=== PATIENT | female | born 2000 | race Caucasian/White ===

== ENCOUNTER → 2019-10-12 10:38 | Outpatient (CLI) | payer SELFPAY ==
--- NOTE | 2019-10-12 10:44 | RAD_ITS ---
STUDY: X-RAY - LEFT FOOT CLINICAL: Female, 19 years old. foot was stuck in farm implement 3 days ago TECHNIQUE: 3 view(s) of the foot. COMPARISON: None. FINDINGS: Normal talus, calcaneus, and tarsal bones. Normal visualized subtalar, talonavicular, calcaneocuboid, tarsal and tarsometatarsal articulations. Normal metatarsi. Normal metatarsophalangeal joint of the great toe. Normal tibial and fibular sesamoid bones. Normal interphalangeal joint of the great toe. Normal phalanges of the great toe. Normal second through fifth metatarsophalangeal joints. Normal interphalangeal joints and phalanges of the lesser toes. The soft tissue structures are unremarkable. RAD/Foot min 3 Views IMPRESSION: Normal x-ray examination of the foot. Electronically Signed: Tyree Ervin MD at 10:58 EDT Tel , Service support ,
== END ==
PROVIDERS: Referring Provider Physician Assistant; Visit Provider Physician Assistant
DX: S99.922A Unspecified injury of left foot, initial encounter (principal)
CPT/HCPCS: 73630

== ENCOUNTER → 2020-02-26 10:18 | Outpatient (CLI) | payer SELFPAY ==
[2019-10-12 11:06] VITALS: BMI 21.9
[2020-02-26 14:41] LABS: Absolute Lymphocyte Count 2.39 X10^3/uL (0.83-4.51); Absolute Neutrophil Count 3.7 X10^3/uL (2.0-7.7); Basophil# 0.06 X10^3/uL; Basophil% 0.9 % (0-1); Color, Urine Yellow (Yellow); Eosinophil# 0.12 X10^3/uL; Eosinophils% 1.7 % (0-5); Glucose, Dipstick Normal (Normal); Hemoglobin 12.6 g/dL (12.0-15.0); Ketone-Dipstick Negative (Negative); Leukocyte Esterase-Dipstick Negative /ul (Negative); Lymphocyte # 2.39 X10^3/ul (4.0); Lymphocyte % 34.8 % (19-41); Mean Corp Hgb Conc 33.2 g/dL (32-36); Mean Corpuscular Hgb 29.4 pg (27.0-32.0); Mean Corpuscular Volume 88.8 fL (81-99); Mean Platelet Vol. 9.8 fl (6.2-12.0); Monocyte% 8.7 % (0-10); NRBC Flagged by Analyzer 0 % (0-5); Neutrophil # 3.67 X10^3/uL (2.7-7.7); Neutrophil % 53.6 % (47-70); Nitrite-Dipstick Negative (Negative); Occult Blood-Urine Negative /ul (Negative); Platelet Count 307 K/mm3 (150-450); Protein-Dipstick Negative (Negative); RBC Distribution Width CV 12.1 % (11.6-14.6); RBC Distribution Width SD 38.5 fl (35.1-43.9); Red Blood Count 4.28 M/mm3 (4.2-5.4); Urine Bilirubin Dipstick Negative (Negative); Urine Clarity Clear (Clear); Urine Urobilinogen Normal (Normal); White Blood Count 6.9 K/mm3 (4.4-11.0)
[2020-02-26 15:43] LABS: HIV - WCH Non-Reactive (Nonreactive); Hepatitis B Surface Antigen Non-Reactive (Nonreactive); Hepatitis C Antibody Non-Reactive (Nonreactive); Rubella IgG Non-Reactive (Nonreactive)
[2020-03-01 03:07] LABS: Chlamydia By Nucleic Acid AMP Negative (Negative)
[2020-03-01 06:30] LABS: Gonococcus By Nucleic Acid AMP Negative (Negative)
[2020-03-02 15:14] LABS: HPV Reflexed? NOT INDICATED
[2020-03-03 01:20] LABS: Prenatal RPR NONREACTIVE (NONREACTIVE)
== END ==
PROVIDERS: Visit Provider Obstetrics & Gynecology
DX: Z34.81 Encounter for supervision of other normal pregnancy, first trimester (principal); Z12.4 Encounter for screening for malignant neoplasm of cervix; Z11.3 Encounter for screening for infections with a predominantly sexual mode of transmission
CPT/HCPCS: 36415; 81002; 85025; 86703; 86762; 86803; 87086; 87340; 87491; 87591; 88175; G0145

== ENCOUNTER → 2020-06-27 10:35 | Outpatient (CLI) | payer SELFPAY ==
[2019-10-12 11:06] VITALS: BMI 21.9
[2020-06-27 11:33] LABS: Hematocrit 33.8 % (37-47); Hemoglobin 11.6 g/dL (12.0-15.0); Mean Corp Hgb Conc 34.3 g/dL (32-36); Mean Corpuscular Hgb 31.5 pg (27.0-32.0); Mean Corpuscular Volume 91.8 fL (81-99); Mean Platelet Vol. 8.8 fl (6.2-12.0); Platelet Count 311 K/mm3 (150-450); RBC Distribution Width SD 43.7 fl (35.1-43.9); Red Blood Count 3.68 M/mm3 (4.2-5.4); White Blood Count 11.1 K/mm3 (4.4-11.0)
[2020-06-27 11:46] LABS: Glucose Challenge Gest 1H 50g 75 mg/dL (70-140)
== END ==
PROVIDERS: Visit Provider Obstetrics & Gynecology
DX: Z34.82 Encounter for supervision of other normal pregnancy, second trimester (principal)
CPT/HCPCS: 36415; 82950; 85027

== ENCOUNTER → 2020-07-19 10:39 | Outpatient (CLI) | payer SELFPAY ==
[2019-10-12 11:06] VITALS: BMI 21.9
== END ==
PROVIDERS: Visit Provider Obstetrics & Gynecology
DX: R76.8 Other specified abnormal immunological findings in serum (principal)
CPT/HCPCS: 36415; 86850

== ENCOUNTER → 2020-09-08 11:49 | Outpatient (CLI) | payer OTHER, SELFPAY ==
[2019-10-12 11:06] VITALS: BMI 21.9
== END ==
PROVIDERS: Visit Provider Obstetrics & Gynecology
DX: Z36.85 Encounter for antenatal screening for Streptococcus B (principal)
CPT/HCPCS: 87081

== ENCOUNTER 2020-09-26 18:35 | Inpatient (IN) | payer SELFPAY, OTHER ==
[2019-10-12 11:06] VITALS: BMI 21.9
[2020-09-26 19:25] VITALS: BP 115/73; PULSE 73; TEMP 36.9; O2SAT 99
[2020-09-26 19:35] VITALS: BMI 20.6
[2020-09-26] MEDS: 0.9% Saline Lock 10 ML Syringe IV (19:45)
[2020-09-26 19:59] LABS: Absolute Lymphocyte Count 2.48 X10^3/uL (0.83-4.51); Absolute Neutrophil Count 6.8 X10^3/uL (2.0-7.7); Basophil# 0.04 X10^3/uL; Basophil% 0.4 % (0-1); Hematocrit 34.5 % (37-47); Hemoglobin 11.9 g/dL (12.0-15.0); Lymphocyte # 2.48 X10^3/ul (0.83-4.51); Lymphocyte % 24.4 % (19-41); Mean Corp Hgb Conc 34.5 g/dL (32-36); Mean Corpuscular Hgb 31.5 pg (27.0-32.0); Mean Corpuscular Volume 91.3 fL (81-99); Mean Platelet Vol. 9.6 fl (6.2-12.0); Monocyte# 0.69 X10^3/uL; Monocyte% 6.8 % (0-10); NRBC Flagged by Analyzer 0 % (0-5); Neutrophil # 6.78 X10^3/uL (2.7-7.7); Neutrophil % 66.7 % (47-70); Platelet Count 202 K/mm3 (150-450); RBC Distribution Width CV 12.4 % (11.6-14.6); RBC Distribution Width SD 40.7 fl (35.1-43.9); Red Blood Count 3.78 M/mm3 (4.2-5.4); White Blood Count 10.2 K/mm3 (4.4-11.0)
[2020-09-26] MEDS: miSOPROStol 25 MCG TABLET VAGINAL (20:58)
[2020-09-26 21:00] VITALS: BP 111/72; PULSE 65; O2SAT 100
[2020-09-27] VITALS (25 sets, daily range): BP systolic 103–134; BP diastolic 61–84; PULSE 54–82; RESP 16; TEMP 36.4–37.6; O2SAT 82–100
[2020-09-27] MEDS: Lactated Ringers 500 ML 999 ML IV ×2 (00:15→02:09)
[2020-09-27] MEDS: Lactated Ringers 1,000 ML 50 ML IV (00:46)
[2020-09-27] MEDS: Acetaminophen 500 MG Tablet PO (04:11)
--- NOTE | 2020-09-27 05:19 | PLAC_PTH ---
PATIENT: DONNA ELY LOC: [facility] U#:[id number] AGE/SX: 20/F ROOM: WP010 RE09/26/[address]: Dr. Conrado Ely MD : 2000 BED: 1 DIS: 09/28/2020 SPEC #: [id number] RECD: 09/27/20 09:13 STATUS: CORRINE REYolanda #: [id number] BRANDON: 09/27/20 05:[address]: Conrado Ely DEPT: SURGICAL PATHOLOGY RECD BY: Colleen Ashton ENTERED: 09/27/20 09:50 SP TYPE: PLACENTA OTHR DR: No Primary Care Phys Tissues: Placenta, NOS Procedures: Surgery Specimen Level V HEADER OPERATION: Vaginal delivery PRE-OP DIAGNOSIS: Labor TISSUE SUBMITTED: Placenta MICROSCOPIC DIAGNOSIS Webb placenta (361 gm): Umbilical cord ? trivascular with no inflammation. Placental membranes ? no pathologic change. Placental disc ? Fahad-Darrian change and mild intravillous congestion. AM:jonatan 09/29/2020 MICROSCOPIC DESCRIPTION Slides are reviewed. GROSS DESCRIPTION SPECIMEN: PLACENTA / CLINICAL INFORMATION: A. Weight: 2.48 kg B. Gestational Age: 38 weeks C. Sex: Male PLACENTAL WEIGHT (POST FIXATION): 361 gm PLACENTAL DIMENSIONS: 15 x 14 x 3 cm PLACENTAL SHAPE: Usual ovoid PLACENTAL WEIGHT FOR GESTATIONAL AGE: Within 10-99th percentile MEMBRANES - Present A. Insertion: Marginal B. Site of rupture from edge: At edge of placental disc C. Color of membrane: Lopez-marinelli D. Abnormalities: None UMBILICAL CORD - Present A. Color: Lopez-marinelli B. Insertion: Central C. Length: 30 cm D. Diameter: 1.2 cm E. Number of vessels: Three F. Abnormalities: None PLACENTAL DISC - Present A. Color of surface: Lopez-marinelli B. surface abnormalities: None C. Maternal cotyledons: Intact with minimal tears D. Attached retro placental clot: No clot E. Cut surface: Dark red and spongy F. Lesions: None G. Separate clot: Absent SECTIONS SUBMITTED: 1. Umbilical cord ( end notched) 2. Umbilical cord, placental end 3. Membrane roll 4. Placental disc, and maternal surfaces 5. Placental disc, and maternal surfaces 6. Placental disc, and maternal surfaces AM:jonatan 09/28/20 TC:5 CPT: 38209
[2020-09-27] MEDS: Oxytocin 30 units/NS 500 ml 30 UNITS/500 ML IV.SOLN 334 UNITS IV (05:24)
--- NOTE | 2020-09-27 05:51 | PCM.HP.OB ---
HPI - General General Date of Admission: 09/26/20 HPI Narrative 20-year-old G1, P0 admitted at 38/4 weeks, TOSHIA 10/06/2020 by LMP, for induction of labor for growth restriction. Denies leaking of fluid, vaginal bleeding, contractions. Reports movement. Denies headache, vision change, chest pain, shortness of breath, nausea or vomiting, diarrhea or constipation, fevers or chills. complicated by growth restriction: EFW 2668g 10% AC 2.5% on last growth ultrasound. Maternal Data Information Final TOSHIA: 10/06/20 Final TOSHIA Source: LMP PFSH PFSH Home Medications DHA 1 dose PO/SL DAILY 09/26/20 [History Last Taken 09/25/20] Allergy/AdvReac Type Severity Reaction Status Date / Time No Known Allergies Allergy Verified 09/26/20 19:33 Social History Smoking Status: Never smoker alcohol intake: never History 1 Elective abortions Hx Para 0 Spontaneous abortions Hx # Term Pregnancies Ectopic pregnancies Hx # Pregnancies Multiple births # of living children NST FHR Rate Baby A Baseline: 145 Variability:: Moderate Accelerations:: 15 x 15 Decelerations:: None NST Reactive:: Yes FHR Category:: Category I ROS Constitutional Constitutional: Reports systems reviewed and no addt'l complaints, except as documented Eyes Eyes: Reports systems reviewed and no addt'l complaints, except as documented ENT HEENT: Reports systems reviewed and no addt'l complaints, except as documented Cardiovascular Cardiovascular: Reports systems reviewed and no addt'l complaints, except as documented Respiratory/Chest Respiratory/Chest: Reports systems reviewed and no addt'l complaints, except as documented Gastrointestinal Gastrointestinal: Reports systems reviewed and no addt'l complaints, except as documented Genitourinary Genitourinary: Reports systems reviewed and no addt'l complaints, except as documented Musculoskeletal Musculoskeletal: Reports systems reviewed and no addt'l complaints, except as documented Integumentary Integumentary: Reports systems reviewed and no addt'l complaints, except as documented Neurologic Neurologic: Reports systems reviewed and no addt'l complaints, except as documented Psychiatric Psychiatric: Reports systems reviewed and no addt'l complaints, except as documented Endocrine Endocrinology: Reports systems reviewed and no addt'l complaints, except as documented Hematologic/Lymphatic Hematologic/Lymphatic: Reports systems reviewed and no addt'l complaints, except as documented Allergic/Immunologic Allergic/Immunologic: Reports systems reviewed and no addt'l complaints, except as documented Vital Signs Vital Signs Vital Signs: 09/26/20 19:25 09/26/20 21:00 09/27/20 00:17 Temperature 98.4 F 98.2 F Temperature Source Temporal Temporal Pulse Rate 73 65 55 L Blood Pressure 115/73 111/72 132/82 H BP Systolic 115 111 132 BP Diastolic 73 72 82 Pulse Ox 99 100 100 09/27/20 02:11 09/27/20 02:12 09/27/20 04:50 Temperature 98.9 F Temperature Source Temporal Pulse Rate 58 L 54 L 82 Blood Pressure 115/74 123/68 H BP Systolic 115 123 BP Diastolic 74 68 Pulse Ox 99 99 09/27/20 05:36 09/27/20 05:40 09/27/20 05:42 Temperature Temperature Source Pulse Rate 82 72 Blood Pressure 130/70 H BP Systolic 130 BP Diastolic 70 Pulse Ox 100 82 100 09/27/20 05:47 Temperature Temperature Source Pulse Rate 65 Blood Pressure BP Systolic BP Diastolic Pulse Ox 100 Weight Weight: 51.256 kg Body Mass Index (BMI) 20.6 Physical Exam Const alert, oriented x3 and no apparent distress HEENT normocephalic Head and Scalp: atraumatic Neck full ROM Resp normal respiratory effort and clear to auscultation bilaterally Cardio regular rate and regular rhythm GI normal to inspection, nondistended, normoactive bowel sounds Inspection: gravid Extremity normal to inspection and no pedal edema Neuro moves all extremities, no focal motor deficits, no sensory deficits noted and gait normal Psych mental status grossly normal and affect normal Labs Labs Labs: Blood Type B NEGATIVE Antibody Screen NEGATIVE Hct 34.5 % (37-47) L Hgb 11.9 g/dL (12.0-15.0) L Rubella IgG Antibody Non-Reactive (Nonreactive) Hep Bs Antigen Non-Reactive (Nonreactive) Neisseria gonorrhoeae DNA (JOHN) Negative (Negative) HIV 1&2 Antibody Non-Reactive (Nonreactive) Glucose 1 Hr 50 gm 75 mg/dL (70-140) Assessment & Plan (1) growth restriction: PLAN: 20-year-old G1, P0 admitted at 38/4 weeks, TOSHIA 10/06/2020 by LMP, for induction of labor for growth restriction. Cytotec induction. Routine orders. Uncomplicated otherwise.
--- NOTE | 2020-09-27 05:57 | EX.PCM.OBRPT ---
Maternal Data Information Final TOSHIA: 10/06/20 Final TOSHIA Source: LMP Vaginal Delivery Operative Information Date of Procedure: 09/27/20 Pre-Operative Diagnosis: growth restriction Post-Operative Diagnosis: growth restriction Surgery / Procedure Performed: Spontaneous Vaginal Delivery Type of Anesthesia: None Estimated Blood Loss: 250cc Findings Description of Procedure: Spontaneous vaginal delivery viable male. No nuchal cord. Baby to maternal chest. Cord clamped and cut. Periclitoral laceration repaired in the usual fashion after lidocaine, hemostatic. Spontaneous delivery of placenta. Apgars 9/9.
--- NOTE | 2020-09-27 06:00 | PCM.DC ---
Discharge Instructions Diet Discharge Diet: No restrictions Activity Discharge Activity: Return to Normal Activity and May Shower May resume sexual activity in: 4-6 weeks Weight Bearing Status: Weight bearing as tolerated Dressing / Incision Call your doctor if your incision/area has: Continuous Slow Oozing Call your doctor if you observe: Fever of 101 or Higher, Inability to urinate, Using more than 1 pad per hour, Shortness of breath, Dizziness, Swelling in the ankles and Chest pain Cleanse incision/area with: Soap & Water Follow Up Care Please Follow Up With: Conrado Lemus When: 2 week telehealth, 6 week Test Results: Test results from this visit will be discussed in further detail at your follow-up appointment, if applicable. Discharge Plan Admission Admit Date/Time: 09/26/20 18:35 Primary Reason for Your Visit: Labor Attending Provider: Conrado Lemus Primary Care Provider: Care Physician,No Primary Discharge Orders/Prescriptions Prescriptions: No Action DHA 1 dose PO/SL DAILY RF: 0 Referrals / Follow Up: Care Physician,No Primary [Primary Care Provider] - Disposition Disposition (needs filled in before D/C Order can be placed): Home, self care
[2020-09-27] MEDS: Ibuprofen 600 MG Tablet PO ×2 (06:37→22:03)
[2020-09-27] MEDS: 0.9% Saline Lock 10 ML Syringe IV (08:20)
[2020-09-27 09:11] LABS: Pathology Specimen OB SEE PATHOLOGY REPORT
[2020-09-28 00:09] VITALS: BP 101/65; PULSE 61; RESP 16; TEMP 36.3
[2020-09-28 04:25] VITALS: BP 97/64; PULSE 54; RESP 14; TEMP 36.6
--- NOTE | 2020-09-28 06:35 | PCM.PN.OB ---
Subjective Subjective No complaints. Has mild cramping, alleviated with NSAIDS. Denies heavy lochia. She is with no concerns. Objective Data Objective Data Vital Signs: Vital Signs Temp Pulse Resp BP Pulse Ox 98 F 54 L 14 97/64 99 09/28/20 04:25 09/28/20 04:25 09/28/20 04:25 09/28/20 04:25 09/27/20 06:17 Oxygen Delivery Method Room Air Weight: 51.256 kg Body Mass Index (BMI) 20.6 Intake & Output: Intake and Output for Last 24 Hours 09/26/20 09/27/20 09/28/20 23:59 23:59 23:59 Intake Total 1795.84 / 1795.84 Output Total 300 / 300 Balance 1495.84 / 1495.84 Lab / Micro Data Result Diagrams: 09/26/20 19:45 Labs: Laboratory Results - last 24 hr 09/27/20 07:50 Screen NEGATIVE Baby's Blood Type AB POSITIVE Baby's MARCELO POSITIVE Micro: Microbiology 09/26/20 19:45 Mucosa - Nose SARS-CoV-2 Antigen (Rapid) - Final Physical Exam Const alert, oriented x3 and no apparent distress Resp normal respiratory effort and normal air movement Cardio regular rate, regular rhythm, S1 normal heart sound and S2 normal heart sound Narrative: lochia scant Uterus Palpation: uterus fundus firm and other OB fundus nontender Extremity no calf tenderness Neuro oriented x3 Assessment & Plan (1) (spontaneous vaginal delivery): PLAN: B negative - infant AB positive, pt for Rhogam HBsAg neg/HIV neg/RPR nr/Rubella immune Plan for d/c home later today
--- NOTE | 2020-09-28 06:44 | PCM.DC ---
Discharge Instructions Diet Discharge Diet: No restrictions Activity May resume sexual activity in: 4-6 weeks Weight Bearing Status: Weight bearing as tolerated Dressing / Incision Call your doctor if your incision/area has: Continuous Slow Oozing Call your doctor if you observe: Fever of 101 or Higher, Inability to urinate, Using more than 1 pad per hour, Shortness of breath, Dizziness, Swelling in the ankles and Chest pain Cleanse incision/area with: Soap & Water Follow Up Care Please Follow Up With: Conrado Lemus When: 3 weeks for telehealth 6 weeks visit Test Results: Test results from this visit will be discussed in further detail at your follow-up appointment, if applicable. Discharge Plan Admission Admit Date/Time: 09/26/20 18:35 Primary Reason for Your Visit: Attending Provider: Conrado Lemus Primary Care Provider: Care Physician,No Primary Instructions Patient Instructions: After a Vaginal Discharge Orders/Prescriptions Prescriptions: No Action DHA 1 dose PO/SL DAILY RF: 0 Referrals / Follow Up: Care Physician,No Primary [Primary Care Provider] - Disposition Disposition (needs filled in before D/C Order can be placed): Home, self care
--- NOTE | 2020-09-28 06:48 | PCM.DC.SUM ---
Providers Date of Admission: 09/26/20 Primary Care Physician: Larissa Primary Care Phys Reason For Visit: INDUCTION Diagnosis Discharge Diagnosis (1) (spontaneous vaginal delivery): Status: Acute Code(s): O80 - Encounter for full-term uncomplicated delivery Medications at Discharge Home Medications DHA 1 dose PO/SL DAILY 09/26/20 ibuprofen 600 mg PO Q8H PRN PRN #30 tab 09/28/20 Hospital Course Summary of Care Provided Hospital Course: 20yo G1 admitted at 38 4/7 weeks gestation for scheduled induction of labor for growth restriction. She had an uncomplicated . Her course was unremarkable and she was discharged to home on day #1. Weight / BMI Weight Weight: 51.256 kg Body Mass Index (BMI) 20.6 ABG / Lab / Microbiology Data Result Diagrams: 09/26/20 19:45 Laboratory: Laboratory Results - last 24 hr 09/27/20 07:50 Screen NEGATIVE Baby's Blood Type AB POSITIVE Baby's MARCELO POSITIVE Microbiology: Microbiology 09/26/20 19:45 Mucosa - Nose SARS-CoV-2 Antigen (Rapid) - Final D/C Instructions Discharge Diet: No restrictions May resume sexual activity in: 4-6 weeks Weight Bearing Status: Weight bearing as tolerated Call your doctor if your incision/area has: Continuous Slow Oozing Call your doctor if you observe: Fever of 101 or Higher, Inability to urinate, Using more than 1 pad per hour, Shortness of breath, Dizziness, Swelling in the ankles and Chest pain Cleanse incision/area with: Soap & Water Please Follow Up With: Conrado Lemus When: 3 weeks for telehealth 6 weeks visit Meaningful Use Info Meaningful Use Diagnoses (Choose all that apply): None applicable Discharge Plan Admission Admit Date/Time: 09/26/20 18:35 Primary Reason for Your Visit: Attending Provider: Conrado Lemus Primary Care Provider: Care Physician,No Primary Instructions Patient Instructions: After a Vaginal Discharge Orders/Prescriptions Prescriptions: New ibuprofen 600 mg Tablet 600 mg PO Q8H PRN PRN (Reason: Pain Score 1-3) Qty: 30 RF: 0 Continued DHA 1 dose PO/SL DAILY RF: 0 Referrals / Follow Up: Care Physician,No Primary [Primary Care Provider] - Disposition Disposition (needs filled in before D/C Order can be placed): Home, self care
[2020-09-28 08:00] VITALS: BP 98/74; PULSE 62; RESP 18; TEMP 36.2
== END 2020-09-28 13:30 | disposition home or self-care (01) | DRG 768 ==
PROVIDERS: Student in an Organized Health Care Education/Training Program; Admitting Provider Obstetrics & Gynecology; Visit Provider Obstetrics & Gynecology
DX: O36.5930 Maternal care for other known or suspected poor fetal growth, third trimester, not applicable or unspecified (principal); Z37.0 Single live birth; O71.89 Other specified obstetric trauma; Z3A.38 38 weeks gestation of pregnancy
CPT/HCPCS: 59025; 59050; 85025; 85461; 86850; 86900; 86901; 87426; 88307; 90384; 99218; J7120; A4216; G0378; J2790

== ENCOUNTER → 2022-03-29 | Outpatient (CLI) | payer OTHER, SELFPAY ==
[2022-03-29 17:18] LABS: Absolute Lymphocyte Count 2.59 X10^3/uL (0.83-4.51); Absolute Neutrophil Count 6.2 X10^3/uL (2.0-7.7); Basophil# 0.05 X10^3/uL; Basophil% 0.5 % (0-1); Eosinophil# 0.16 X10^3/uL; Eosinophils% 1.7 % (0-5); Hematocrit 35.7 % (37-47); Hemoglobin 12.3 g/dL (12.0-15.0); Lymphocyte # 2.59 X10^3/ul (0.83-4.51); Lymphocyte % 27.2 % (19-41); Mean Corp Hgb Conc 34.5 g/dL (32-36); Mean Corpuscular Hgb 30.1 pg (27.0-32.0); Mean Corpuscular Volume 87.5 fL (81-99); Mean Platelet Vol. 8.9 fl (6.2-12.0); Monocyte# 0.52 X10^3/uL; Monocyte% 5.5 % (0-10); NRBC Flagged by Analyzer 0 % (0-5); Neutrophil # 6.17 X10^3/uL (2.7-7.7); Neutrophil % 64.8 % (47-70); Platelet Count 301 K/mm3 (150-450); RBC Distribution Width CV 12.7 % (11.6-14.6); RBC Distribution Width SD 40.1 fl (35.1-43.9); Red Blood Count 4.08 M/mm3 (4.2-5.4); White Blood Count 9.5 K/mm3 (4.4-11.0)
[2022-03-29 18:35] LABS: HIV - WCH Non-Reactive (Nonreactive); Hepatitis B Surface Antigen Non-Reactive (Nonreactive); Hepatitis C Antibody Non-Reactive (Nonreactive); Rubella IgG Non-Reactive (Nonreactive); Syphilis Antibodies Non-reactive
[2022-04-02 05:06] LABS: Chlamydia By Nucleic Acid AMP Negative (Negative); Gonococcus By Nucleic Acid AMP Negative (Negative)
[2022-04-03 11:21] LABS: V-Zoster IgG (Immunity) 763 index (Immune >165)
== END | disposition home or self-care (01) ==
LOC: WOBLAB 16:48
PROVIDERS: Visit Provider Obstetrics & Gynecology
DX: Z34.81 Encounter for supervision of other normal pregnancy, first trimester (principal)
CPT/HCPCS: 36415; 85025; 86703; 86762; 86780; 86787; 86803; 87086; 87088; 87340; 87491; 87591

== ENCOUNTER → 2022-06-22 | Outpatient (CLI) | payer OTHER, SELFPAY ==
[2022-06-22 10:58] LABS: Hematocrit 32.8 % (37-47); Hemoglobin 10.9 g/dL (12.0-15.0); Mean Corp Hgb Conc 33.2 g/dL (32-36); Mean Corpuscular Hgb 31.1 pg (27.0-32.0); Mean Corpuscular Volume 93.7 fL (81-99); Mean Platelet Vol. 8.9 fl (6.2-12.0); Platelet Count 255 K/mm3 (150-450); RBC Distribution Width CV 12.9 % (11.6-14.6); White Blood Count 8.9 K/mm3 (4.4-11.0)
[2022-06-22 11:02] LABS: Glucose Challenge Gest 1H 50g 84 mg/dL (70-140)
== END | disposition home or self-care (01) ==
LOC: WOBLAB 10:14
PROVIDERS: Visit Provider Obstetrics & Gynecology
DX: Z34.82 Encounter for supervision of other normal pregnancy, second trimester (principal)
CPT/HCPCS: 36415; 82950; 85027

== ENCOUNTER → 2022-07-20 | Outpatient (CLI) | payer OTHER, SELFPAY ==
[2022-07-20 11:32] LABS: Syphilis Antibodies Non-reactive
== END | disposition home or self-care (01) ==
PROVIDERS: Visit Provider Obstetrics & Gynecology
DX: Z34.83 Encounter for supervision of other normal pregnancy, third trimester (principal)
CPT/HCPCS: 36415; 86780

== ENCOUNTER → 2022-08-30 | Outpatient (CLI) | payer OTHER, SELFPAY ==
[2022-08-30 09:46] LABS: Hemoglobin 11.2 g/dL (12.0-15.0); Mean Corp Hgb Conc 32.9 g/dL (32-36); Mean Corpuscular Hgb 30.8 pg (27.0-32.0); Mean Corpuscular Volume 93.4 fL (81-99); Mean Platelet Vol. 8.5 fl (6.2-12.0); Platelet Count 252 K/mm3 (150-450); RBC Distribution Width CV 12.9 % (11.6-14.6); Red Blood Count 3.64 M/mm3 (4.2-5.4)
== END | disposition home or self-care (01) ==
LOC: WOBLAB 09:18
PROVIDERS: Visit Provider Obstetrics & Gynecology
DX: Z34.83 Encounter for supervision of other normal pregnancy, third trimester (principal); Z36.85 Encounter for antenatal screening for Streptococcus B
CPT/HCPCS: 36415; 85027; 87081

== ENCOUNTER 2022-09-17 07:00 | Inpatient (IN) | payer SELFPAY, OTHER ==
[2022-09-17] VITALS (15 sets, daily range): BP systolic 99–122; BP diastolic 60–80; PULSE 65–81; RESP 16; TEMP 36.2–36.8; O2SAT 79–99; BMI 20.9
[2022-09-17] MEDS: Lactated Ringers 1,000 ML 50 ML IV (07:35)
[2022-09-17] MEDS: Oxytocin 15 Units/NS 250ml 15 UNITS/250 ML IV.SOLN 2 UNITS IV (07:44)
[2022-09-17 07:58] LABS: Absolute Lymphocyte Count 2.12 X10^3/uL (0.83-4.51); Absolute Neutrophil Count 4.8 X10^3/uL (2.0-7.7); Basophil# 0.05 X10^3/uL; Basophil% 0.6 % (0-1); Eosinophil# 0.12 X10^3/uL; Eosinophils% 1.5 % (0-5); Hematocrit 33.7 % (37-47); Hemoglobin 11.5 g/dL (12.0-15.0); Lymphocyte # 2.12 X10^3/ul (0.83-4.51); Lymphocyte % 26.8 % (19-41); Mean Corp Hgb Conc 34.1 g/dL (32-36); Mean Corpuscular Hgb 31.3 pg (27.0-32.0); Mean Corpuscular Volume 91.8 fL (81-99); Monocyte# 0.78 X10^3/uL; Monocyte% 9.8 % (0-10); NRBC Flagged by Analyzer 0 % (0-5); Neutrophil # 4.78 X10^3/uL (2.7-7.7); Neutrophil % 60.4 % (47-70); Platelet Count 205 K/mm3 (150-450); RBC Distribution Width CV 13.2 % (11.6-14.6); RBC Distribution Width SD 43.8 fl (35.1-43.9); Red Blood Count 3.67 M/mm3 (4.2-5.4); White Blood Count 7.9 K/mm3 (4.4-11.0)
[2022-09-17 08:52] LABS: Syphilis Antibodies Non-reactive
--- NOTE | 2022-09-17 11:18 | PCM.HP.BLA ---
History and Physical Date of Admission: 09/17/22 Chief complaint: Induction of labor IUGR History present illness: 22-year-old at 37 weeks and 6 days with TOSHIA 10/02/2021 arrives for induction of labor with IUGR. Denies headache, vision change, chest pain, shortness of breath, nausea vomit, right upper quadrant pain. Patient states good movement. is complicated by IUGR Obstetric history: G1: 39-week male 5 pounds 7 ounces G2: Current Past medical history: None Medications: vitamin Allergies: No known drug allergies Past surgical history: None Family history: Denies history DVT or PE Social history: Denies smoking, alcohol use, drug use Review of systems: Besides above pertinent positives a full review of systems was performed and found to be negative Physical exam: Vitals: Blood pressure 111/64 pulse 73 General: Normal-appearing no acute distress HEENT: Normocephalic/atraumatic no cervical lymphadenopathy Cardiac/respiratory: No use of accessory muscles, nonlabored breathing Abdomen: Soft, nontender, gravid Pelvic exam: Cervical exam 3/60/-3. AROM clear fluid Extremities: No peripheral edema normal peripheral pulses Psych: Normal affect, demeanor nonpressured speech Labs: White blood cell count 7.9 hemoglobin 11.5 hematocrit 33.7% platelets 205. RPR nonreactive. Blood type B- antibody positive anti-D Assessment and plan: 22-year-old G2, P1 at 37 weeks and 6 days arrives for induction of labor with IUGR via Pitocin. GBS negative. Routine orders. 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 We will continue to titrate Pitocin, status post AROM
[2022-09-17] MEDS: Ondansetron 4 MG/2 ML Vial IV (13:34)
[2022-09-17] MEDS: Methylergonovine 0.2 MG/ML Ampul IM (14:00)
--- NOTE | 2022-09-17 14:05 | EX.PCM.OBRPT ---
Vaginal Delivery Findings Description of Procedure: Called by nursing that patient 8 cm and discussed early arrival to hospital. Arrived to hospital and patient's room patient precipitously delivered male infant, baby skin to skin. Cord clamped and cut. Placenta delivered via cord traction, fundal massage, and maternal pushing efforts, intact. IV Pitocin given per protocol. IM Methergine given prophylactically with short second stage of labor. No lacerations noted. EBL 300 cc. Apgars 8/9
[2022-09-17] MEDS: Ibuprofen 600 MG Tablet PO ×2 (14:47→20:54)
[2022-09-17] MEDS: Oxytocin 15 Units/NS 250ml 15 UNITS/250 ML IV.SOLN 83 UNITS IV (14:48)
[2022-09-17] MEDS: Acetaminophen 500 MG Tablet 1000 MG PO (16:20)
[2022-09-18] VITALS (9 sets, daily range): BP systolic 95–108; BP diastolic 56–62; PULSE 60–75; RESP 15; TEMP 36.4–37.1; O2SAT 95–99
[2022-09-18] MEDS: Ibuprofen 600 MG Tablet PO ×2 (06:33→15:38)
--- NOTE | 2022-09-18 08:32 | PCM.PN.OB ---
Subjective Subjective day 1. Lochia minimal. Feeling well. Objective Data Objective Data Vital Signs: Vital Signs Temp Pulse Resp BP Pulse Ox O2 Del Method 98.8 F 73 15 107/61 99 Room Air 09/18/22 03:15 09/18/22 08:07 09/18/22 03:15 09/18/22 08:07 09/18/22 08:07 09/18/22 03:15 Oxygen Delivery Method Room Air Weight: 51.8 kg Body Mass Index (BMI) 20.9 Intake & Output: Intake and Output for Last 24 Hours 09/16/22 09/17/22 09/18/22 23:59 23:59 23:59 Intake Total 816.67 / 816.67 Output Total 700 / 700 Balance 116.67 / 116.67 Lab / Micro Data Attestation: I reviewed the patient's lab results. Result Diagrams: 09/17/22 07:35 Labs: Laboratory Results - last 24 hr 09/17/22 07:35: Blood Type B NEGATIVE, Antibody Screen POSITIVE, Antibody Identification ANTI-D 09/17/22 07:35: Syphilis Total Ab Non-reactive 09/17/22 16:15: Screen NEGATIVE, Baby's Blood Type AB POSITIVE, Baby's MARCELO NEGATIVE Physical Exam Const alert, oriented x3 and no apparent distress HEENT normocephalic Head and Scalp: atraumatic Neck full ROM Resp normal respiratory effort Cardio regular rate GI normal to inspection, nondistended, normoactive bowel sounds GI Narrative: Uterus 2 cm below umbilicus Back/Spine normal ROM Extremity normal to inspection Extremity Narrative: Minimal pedal edema Neuro no focal motor deficits and no sensory deficits noted Psych mental status grossly normal and affect normal Assessment & Plan (1) (spontaneous vaginal delivery): PLAN: day 1 status post . Lochia minimal. Breast-feeding. Discharge home today.
--- NOTE | 2022-09-18 08:33 | DCINST_ITS ---
Discharge Instructions Diet Discharge Diet: No restrictions Activity Discharge Activity: Return to Normal Activity and May Shower May resume sexual activity in: 4-6 weeks Weight Bearing Status: Weight bearing as tolerated Lifting Restrictions: No greater than 25 pounds Dressing / Incision Call your doctor if you observe: Fever of 101 or Higher, Change in Color, Inability to urinate, Using more than 1 pad per hour, Shortness of breath, Dizziness, Swelling in the ankles, Chest pain and Calf discomfort Follow Up Care Please Follow Up With: Conrado Lemus MD When: 6-week visit Test Results: Test results from this visit will be discussed in further detail at your follow- up appointment, if applicable. Discharge Plan Admission Admit Date/Time: 09/17/22 07:00 Primary Reason for Your Visit: Vaginal delivery Attending Provider: Conrado Lemus Primary Care Provider: Larissa Ramos Primary Discharge Orders/Prescriptions Prescriptions: No Action DHA 1 dose PO/SL DAILY ibuprofen 600 mg Tablet 600 mg PO Q8H PRN PRN (Reason: Pain Score 1-3) Qty: 30 0RF Referrals / Follow Up: Care PhysicianLarissa Primary [Primary Care Provider] - Disposition Disposition (needs filled in before D/C Order can be placed): Home, Self Care
[2022-09-18] MEDS: Acetaminophen 500 MG Tablet 1000 MG PO (13:53)
--- NOTE | 2022-09-25 14:44 | NURSING ---
09/25/22 delivery personnel documentation completed.
== END 2022-09-18 17:30 | disposition home or self-care (01) | DRG 807 ==
PROVIDERS: Admitting Provider Obstetrics & Gynecology; Visit Provider Obstetrics & Gynecology
DX: O36.5930 Maternal care for other known or suspected poor fetal growth, third trimester, not applicable or unspecified (principal); Z37.0 Single live birth; O62.3 Precipitate labor; Z3A.37 37 weeks gestation of pregnancy
CPT/HCPCS: 59025; 59050; 85025; 85461; 86780; 86850; 86870; 86900; 86901; 99221; J7120; G0378; J2405; J2790